=== PATIENT | female | born 1985 | race Caucasian/White ===

== ENCOUNTER 2020-09-13 05:57 | Inpatient (IN) ==
[2020-09-13] MEDS ORDERED: Metoclopramide 10 MG/2 ML VIAL IVP PRN (06:04)
[2020-09-13] MEDS ORDERED: Lidocaine 1% 20 ML MDV INFILT PRN (06:04)
[2020-09-13] MEDS ORDERED: *HR* FentaNYL (PF) 100 MCG/2 ML VIAL IVP PRN (06:04)
[2020-09-13] MEDS ORDERED: Naloxone 0.4 MG/ML INJ IVP PRN (06:04)
[2020-09-13] MEDS ORDERED: Famotidine 20 MG/2 ML VIAL IVP PRN (06:04)
[2020-09-13] MEDS: Ringers Solution, Lactated 1,000 ML IVC SCH ×3 (06:34→22:15)
[2020-09-13] MEDS: Penicillin G Potassium 5,000,000 UNIT in 0.9 % Sodium Chloride Mini Bag 100 ML IVPB ONE (06:34)
[2020-09-13 06:39] LABS: Basophils # 0.1 K/mcL (0.0-0.2); Basophils % 0.4 %; Eosinophils # 0.1 K/mcL (0.0-0.6); Eosinophils % 0.8 %; Hematocrit 35.1 % (35.3-44.9); Hemoglobin 12.1 g/dL (11.5-15.4); Immature Granulocytes % 0.6 % (0-4); Lymphocytes # 3.3 K/mcL (0.6-4.6); Lymphocytes % 28.1 %; Mean Corpuscular HGB Conc 34.5 g/dL (31.6-35.5); Mean Corpuscular Hemoglobin 32.2 pg (28.0-33.3); Mean Corpuscular Volume 93.4 fL (83.0-100.0); Mean Platelet Volume 12.3 fL (9.4-12.4); Monocytes # 0.9 K/mcL (0.0-1.3); Monocytes % 7.7 %; Neutrophils # 7.3 K/mcL (1.6-8.9); Platelet Count 250 K/mcL (140-400); Red Blood Count 3.76 M/mcL (3.82-4.97); Segmented Neutrophils % 62.4 %; White Blood Count 11.7 K/mcL (4.3-11.1)
[2020-09-13 06:43] LABS: Amphetamine Screen,Urine Negative ng/mL (Cutoff=1000); Barbiturate Screen,Urine Negative ng/mL (Cutoff=200)
[2020-09-13 06:44] LABS: Benzodiazepines Screen,Urine Negative ng/mL (Cutoff=300); Cannabinoid Screen,Urine Negative ng/mL (Cutoff = 50); Cocaine Screen,Urine Negative ng/mL (Cutoff= 300); Opiate Screen,Urine Negative ng/mL (Cutoff=300); Phencyclidine Screen,Urine Negative ng/mL (Cutoff=25)
[2020-09-13] MEDS: miSOPROStoL 25 MCG TABLET PO PRN (06:50)
[2020-09-13] MEDS ORDERED: EPHEDrine 50 MG/ML VIAL IVP PRN (06:54)
[2020-09-13] MEDS: Penicillin G Potassium 2,500,000 UNIT in 0.9 % Sodium Chloride 100 ML IVPB SCH ×4 (10:42→23:43)
[2020-09-13] MEDS ORDERED: Oxytocin 20 units/ LR 1000 mL 20 UNIT/1,000 ML BAG IVC SCH (12:45)
[2020-09-13] MEDS: Epidural Premix (fent/bupiv) 110 ML EP SCH ×2 (17:07→22:38)
[2020-09-14] MEDS ORDERED: Oxytocin 20 units/ LR 1000 mL 20 UNIT/1,000 ML BAG IVC ONE (03:47)
[2020-09-14] MEDS ORDERED: Oxytocin 20 units/ LR 1000 mL 20 UNIT/1,000 ML BAG IVC SCH (03:47)
[2020-09-14] MEDS: Ibuprofen 600 MG TABLET PO PRN ×3 (05:50→20:03)
[2020-09-14] MEDS: Acetaminophen 325 MG TABLET PO PRN (07:53)
[2020-09-14] MEDS: Prenatal Vit/FA 1 EACH TABLET PO SCH (07:53)
[2020-09-15] MEDS: Ibuprofen 600 MG TABLET PO PRN (05:55)
[2020-09-15 07:49] VITALS: BP 112/74
[2020-09-15] MEDS: Acetaminophen 325 MG TABLET PO PRN (08:00)
[2020-09-15] MEDS: Prenatal Vit/FA 1 EACH TABLET PO SCH (08:00)
[2020-09-15] MEDS ORDERED: Benzocaine/Menthol 56 GM AEROSOL SPRAY TP PRN (08:12)
== END 2020-09-15 13:00 | disposition home or self-care (01) | DRG 807 ==
LOC: 1NENULAB 05:57 → 1NENUOBS 09-14 04:37
PROVIDERS: ADMIT Obstetrics & Gynecology; ATTEND Obstetrics & Gynecology